=== PATIENT | male | born 1980 | race Caucasian/White ===

== ENCOUNTER 2020-07-17 10:13 | Emergency (ER) | payer OTHER ==
[~2020-07-17 10:13] MED LIST: AZITHROMYCIN500 MG PO; MEDROL4 MG PO
[2020-07-17] MEDS ORDERED: COLACE CLEAR50 MG PO (11:41)
== END 2020-07-17 11:53 | disposition home or self-care (01) ==
LOC: ER1 10:13
DX: K56.41 Fecal impaction (principal); Z88.6 Allergy status to analgesic agent
CPT/HCPCS: 99283